=== PATIENT | male | born 1950 | race Caucasian/White ===

== ENCOUNTER → 2021-03-12 | Outpatient (CLI) | payer MEDICARE, OTHER | LOC: M.LAB 13:45 | PROVIDERS: ATTEND Internal Medicine Gastroenterology | DX: Z20.822 Contact with and (suspected) exposure to COVID-19 (principal) ==

== ENCOUNTER → 2021-03-16 | Outpatient (CLI) | payer MEDICARE, OTHER ==
[2021-03-16 12:13] LABS: % SATURATION 21 % (20-39); IRON 57 ug/dL (50-175)
[2021-03-16 22:06] LABS: IgG 1099 mg/dL (603-1613)
[2021-03-17 10:08] LABS: HEPATITIS B SURFACE AG Negative (Negative)
[2021-03-17 19:07] LABS: ANA INTERPRETATION Negative (())
== END ==
LOC: M.ULTRA 10:15
PROVIDERS: ATTEND Internal Medicine Gastroenterology
DX: R16.1 Splenomegaly, not elsewhere classified (principal); R79.89 Other specified abnormal findings of blood chemistry